=== PATIENT | female | born 1960 | race Caucasian/White ===

== ENCOUNTER 2025-01-01 10:40 | Inpatient (IN) | payer MEDICARE, OTHER ==
--- NOTE | 2025-01-01 11:36 | ED ---
General Adult HPI - General Chief complaint: Neuro Symptoms/Deficit Stated complaint: memory loss Time Seen by Provider: 01/01/25 10:55 Source: patient, family, RN notes reviewed, old records reviewed Mode of arrival: ambulatory Limitations: altered mental status - History of Present Illness Initial comments: This is a 64-year-old female who presents to the emergency department with family family gives all of the history. Family states about a week ago patient was at her baseline alert and oriented x 4 and she has had cognitive decline over the last week and has some very paranoid thinking lately and she also believes people that she is seeing on TV are her friends and in fact she now states that Rachna Brennan is one of her close friends and that she knows her very well. Patient denies any complaints or self however she is unable to recog nize her dog of 14 years and does not really understand which houses her house according to the and they took her to [facility] in [place] did a CT CT angiogram blood work it was all negative she also saw her primary medical care doctor and he did cognitive studies which she failed and this is all new onset in the last week. Patient has not had any fever or chills he has not taken any new medications. Family has been no fever there is been no difficulty breathing no cough and no recent trauma. - Related Data Home Medications Medication Instructions Recorded Confirmed Albuterol Inhaler [Ventolin Hfa 2 puff INHALATION RT-QID PRN 01/01/25 01/01/25 Inhaler] Biotin 5,000 mcg PO DAILY 01/01/25 01/01/25 Budesonide/Formoterol Fumarate 2 puff INHALATION RT-BID PRN 01/01/25 01/01/25 [Symbicort 160-4.5 Mcg Inhaler] Cetirizine HCl [Zyrtec] 10 mg PO HS 01/01/25 01/01/25 Escitalopram [Lexapro] 10 mg PO HS 01/01/25 01/01/25 Ezetimibe [Zetia] 10 mg PO HS 01/01/25 01/01/25 Famotidine 40 mg PO HS 01/01/25 01/01/25 Levothyroxine Sodium [Synthroid] 100 mcg PO AC-BRKFST 01/01/25 01/01/25 Losartan [Cozaar] 25 mg PO DAILY 01/01/25 01/01/25 Semaglutide [Ozempic] 1 mg SQ MO 01/01/25 01/01/25 traZODone HCL [Desyrel] 100 mg PO HS 01/01/25 01/01/25 Allergies Allergy/AdvReac Type Severity Reaction Status Date / Time Sulfa (Sulfonamide AdvReac Unknown Verified 01/01/25 11:41 Antibiotics) Review of Systems ROS Statement: Those systems with pertinent positive or pertinent negative responses have been documented in the HPI. ROS Other: All systems not noted in ROS Statement are negative. Past Medical History Past Medical History: Thyroid Disorder Past Surgical History: Orthopedic Surgery Smoking Status: Unknown if ever smoked Past Alcohol Use History: None Reported Past Drug Use History: None Reported General Exam - General Exam Comments Initial Comments: GENERAL: Patient is well-developed and well-nourished. Patient is nontoxic and well- hydrated and is in mild distress. ENT: Neck is soft and supple. No significant lymphadenopathy is noted. Oropharynx is clear. Moist mucous membranes. Neck has full range of motion without eliciting any pain. EYES: The sclera were anicteric and conjunctiva were pink and moist. Extraocular movements were intact and pupils were equal round and reactive to light. Eyelids were unremarkable. PULMONARY: Unlabored respirations. Good breath sounds bilaterally. No audible rales rhonchi or wheezing was noted. CARDIOVASCULAR: There is a regular rate and rhythm without any murmurs gallops or rubs. ABDOMEN: Soft and nontender with normal bowel sounds. SKIN: Skin is clear with no lesions or rashes and otherwise unremarkable. NEUROLOGIC: Patient is alert and oriented x 1. Cranial nerves II through XII are grossly intact. Motor and sensory are also intact. Normal speech, volume and content. Symmetrical smile. MUSCULOSKELETAL: Normal extremities with adequate strength and full range of motion. LYMPHATICS: No significant lymphadenopathy is noted PSYCHIATRIC: Patient states that she has great friends with Rachna Hernandez. Patient also is very fearful of me until family let her know that I was a friend and not to be afraid of me Limitations: altered mental status Course Vital Signs 01/01/25 01/01/25 10:42 12:20 Temperature 98.7 F Pulse Rate 71 68 Respiratory 18 20 Rate Blood Pressure 185/72 152/83 O2 Sat by Pulse 98 99 Oximetry Medical Decision Making - Medical Decision Making EKG is interpreted by myself but EKG shows a sinus rhythm at 66 bpm SC interval 143 QRS is 130 QT interval is 416 QTc is 429. Patient's EKG shows no ST segment elevation or depression. Was pt. sent in by a medical professional or institution (DOREEN Molina, CARDIAC EXERCISE PHYSIOLOGIST, urgent care, hospital, or assisted...) When possible be specific @ -No Did you speak to anyone other than the patient for history (EMS, parent, family, police, friend...)? What history was obtained from this source @ -No Did you review nursing and triage notes (agree or disagree)? Why? @ -I reviewed and agree with nursing and triage notes Were old charts reviewed (outside hosp., previous admission, EMS record, old EKG, old radiological studies, urgent care reports/EKG's, assisted records)? Report findings @ -No old charts were reviewed Differential Diagnosis? @ -Differential Altered Mental Status: Hypoglycemia, DKA, hypercapnia, ETOH, overdose, CO poisoning, trauma, myxedema coma, HTN encephalopathy, infection, encephalitis, psychosis, intercranial hemorrhage, hepatic encephalopathy, meningitis, CVA, this is not meant to be an all-inclusive list EKG interpreted by me (3pts min.). @ -As above X-rays interpreted by me (1pt min.). @ -None done CT interpreted by me (1pt min.). @ -None done U/S interpreted by me (1pt. min.). @ -None done What testing was considered but not performed or refused? (CT, X-rays, U/S, labs)? Why? @ -None What meds were considered but not given or refused? Why? @ -None Did you discuss the management of the patient with other professionals (professionals i.e. DOREEN Molina, CARDIAC EXERCISE PHYSIOLOGIST, lab, RT, psych nurse, social media content specialist, piano assembler, teacher, seismology technical officer, skilled nursing case manager)? Give summary @ -I spoke with sound physicians he agreed to admit the patient Was smoking cessation discussed for >3mins.? @ -No Was critical care preformed (if so, how long)? @ -No Were there social determinants of health that impacted care today? How? (Homelessness, low income, unemployed, alcoholism, drug addiction, tr ansportation, low edu. Level, literacy, decrease access to med. care, assisted, rehab)? @ -No Was there de-escalation of care discussed even if they declined (Discuss DNR or withdrawal of care, Hospice)? DNR status @ -No What co-morbidities impacted this encounter? (DM, HTN, Smoking, COPD, CAD, Cancer, CVA, ARF, Chemo, Hep., AIDS, mental health diagnosis, sleep apnea, morbid obesity)? @ -None Was patient admitted / discharged? Hospital course, mention meds given and route, prescriptions, significant lab abnormalities, going to OR and other pertinent info. @ -Patient continued to be significantly altered throughout her ED course. Patient did, positive for marijuana. According to the the patient occasionally will take a gummy to get sleep but he does not believe she is abusing them. Undiagnosed new problem with uncertain prognosis? @ -No Drug Therapy requiring intensive monitoring for toxicity (Heparin, Nitro, Insulin, Cardizem)? @ -No Were any procedures done? @ -No Diagnosis/symptom? @ -Altered mental status Acute, or Chronic, or Acute on Chronic? @ -Acute Uncomplicated (without systemic symptoms) or Complicated (systemic symptoms)? @ -Complicated Side effects of treatment? @ -No Exacerbation, Progression, or Severe Exacerbation? @ -No Poses a threat to life or bodily function? How? (Chest pain, USA, IA, pneumonia, PE, COPD, DKA, ARF, appy, cholecystitis, CVA, Diverticulitis, Homicidal, Suicidal, threat to staff... and all critical care pts) @ -Yes this could be secondary to encephalitis which could lead to significant morbidity or mortality - Lab Data Result diagrams: 01/01/25 12:13 01/01/25 12:13 Lab Results 01/01/25 01/01/25 01/01/25 Range/Units 12:13 12:13 12:13 WBC 10.49 H (4.50-10.00) 10*3/uL RBC 4.44 (4.10-5.20) 10*6/uL Hgb 13.8 (12.0-15.0) g/dL Hct 39.3 (37.2-46.3) % MCV 88.5 (80.0-97.0) fL MCH 31.1 (27.0-32.0) pg MCHC 35.1 (32.0-37.0) g/dL Plt Count 332 (140-440) 10*3/uL MPV 10.1 (9.5-12.2) fL Immature Gran % (Auto) 0.5 % Neutrophils % 73.1 % Lymphocytes % 18.0 % Monocytes % 7.6 % Eosinophils % 0.3 % Basophils % 0.5 % Immature Gran # 0.05 H (0.00-0.04) 10*3/uL Neutrophils # 7.67 (1.80-7.70) 10*3/uL Lymphocytes # 1.89 (0.90-5.00) 10*3/uL Monocytes # 0.80 (0.20-1.00) 10*3/uL Eosinophils # 0.03 L (0.04-0.35) 10*3/uL Basophils # 0.05 (0.00-0.10) 10*3/uL PT 10.8 (10.0-12.5) sec INR 1.0 (<1.2) APTT 23.6 (22.0-30.0) sec Sodium 139 (137-145) mmol/L Potassium 4.2 (3.5-5.1) mmol/L Chloride 107 (98-107) mmol/L Carbon Dioxide 21 L (22-30) mmol/L Anion Gap 11 mmol/L BUN 17 (7-17) mg/dL Creatinine 0.71 (0.52-1.04) mg/dL Est GFR (CKD-EPI)AfAm >90 (>60 ml/min/1.73 sqM) Est GFR (CKD-EPI)NonAf 89 (>60 ml/min/1.73 sqM) Glucose 113 H (74-99) mg/dL Calcium 10.0 (8.4-10.2) mg/dL Total Bilirubin 0.6 (0.2-1.3) mg/dL AST 25 (14-36) U/L ALT 35 H (4-34) U/L Alkaline Phosphatase 48 (38-126) U/L Ammonia (<30) umol/L Troponin I (0.000-0.034) ng/mL Total Protein 7.2 (6.3-8.2) g/dL Albumin 4.7 (3.5-5.0) g/dL TSH 0.126 L (0.465-4.680) mIU/L Free T4 1.32 (0.78-2.19) ng/dL Urine Color Urine Appearance (Clear) Urine pH (5.0-8.0) Ur Specific Lamy (1.001-1.035) Urine Protein (Negative) Urine Glucose (UA) (Negative) Urine Ketones (Negative) Urine Blood (Negative) Urine Nitrite (Negative) Urine Bilirubin (Negative) Urine Urobilinogen (<2.0) mg/dL Ur Leukocyte Esterase (Negative) Urine Opiates Screen (NotDetected) Ur Oxycodone Screen (NotDetected) Urine Methadone Screen (NotDetected) Ur Barbiturates Screen (NotDetected) U Tricyclic Antidepress (NotDetected) Ur Phencyclidine Scrn (NotDetected) Ur Amphetamines Screen (NotDetected) U Methamphetamines Scrn (NotDetected) U Benzodiazepines Scrn (NotDetected) Urine Cocaine Screen (NotDetected) U Marijuana (THC) Screen (NotDetected) 01/01/25 01/01/25 01/01/25 Range/Units 12:13 12:13 12:48 WBC (4.50-10.00) 10*3/uL RBC (4.10-5.20) 10*6/uL Hgb (12.0-15.0) g/dL Hct (37.2-46.3) % MCV (80.0-97.0) fL MCH (27.0-32.0) pg MCHC (32.0-37.0) g/dL Plt Count (140-440) 10*3/uL MPV (9.5-12.2) fL Immature Gran % (Auto) % Neutrophils % % Lymphocytes % % Monocytes % % Eosinophils % % Basophils % % Immature Gran # (0.00-0.04) 10*3/uL Neutrophils # (1.80-7.70) 10*3/uL Lymphocytes # (0.90-5.00) 10*3/uL Monocytes # (0.20-1.00) 10*3/uL Eosinophils # (0.04-0.35) 10*3/uL Basophils # (0.00-0.10) 10*3/uL PT (10.0-12.5) sec INR (<1.2) APTT (22.0-30.0) sec Sodium (137-145) mmol/L Potassium (3.5-5.1) mmol/L Chloride (98-107) mmol/L Carbon Dioxide (22-30) mmol/L Anion Gap mmol/L BUN (7-17) mg/dL Creatinine (0.52-1.04) mg/dL Est GFR (CKD-EPI)AfAm (>60 ml/min/1.73 sqM) Est GFR (CKD-EPI)NonAf (>60 ml/min/1.73 sqM) Glucose (74-99) mg/dL Calcium (8.4-10.2) mg/dL Total Bilirubin (0.2-1.3) mg/dL AST (14-36) U/L ALT (4-34) U/L Alkaline Phosphatase (38-126) U/L Ammonia 17 (<30) umol/L Troponin I <0.012 (0.000-0.034) ng/mL Total Protein (6.3-8.2) g/dL Albumin (3.5-5.0) g/dL TSH (0.465-4.680) mIU/L Free T4 (0.78-2.19) ng/dL Urine Color Colorless Urine Appearance Clear (Clear) Urine pH 6.5 (5.0-8.0) Ur Specific Lamy 1.006 (1.001-1.035) Urine Protein Negative (Negative) Urine Glucose (UA) Negative (Negative) Urine Ketones Negative (Negative) Urine Blood Negative (Negative) Urine Nitrite Negative (Negative) Urine Bilirubin Negative (Negative) Urine Urobilinogen <2.0 (<2.0) mg/dL Ur Leukocyte Esterase Negative (Negative) Urine Opiates Screen Not Detected (NotDetected) Ur Oxycodone Screen Not Detected (NotDetected) Urine Methadone Screen Not Detected (NotDetected) Ur Barbiturates Screen Not Detected (NotDetected) U Tricyclic Antidepress Not Detected (NotDetected) Ur Phencyclidine Scrn Not Detected (NotDetected) Ur Amphetamines Screen Not Detected (NotDetected) U Methamphetamines Scrn Not Detected (NotDetected) U Benzodiazepines Scrn Not Detected (NotDetected) Urine Cocaine Screen Not Detected (NotDetected) U Marijuana (THC) Screen Detected H (NotDetected) Disposition Clinical Impression: Altered mental status Disposition: ADMITTED IP TO THIS HOSP Referrals: Nonstaff,Physician [Primary Care Provider] - 1-2 days Time of Disposition: 14:41
[2025-01-01 12:20] LABS: Basophils # (A) 0.05 10*3/uL (0.00-0.10); Basophils % (A) 0.5 %; Eosinophils # (A) 0.03 10*3/uL (0.04-0.35); Eosinophils % (A) 0.3 %; HCT 39.3 % (37.2-46.3); HGB 13.8 g/dL (12.0-15.0); Lymphocytes # (A) 1.89 10*3/uL (0.90-5.00); MCH 31.1 pg (27.0-32.0); MCHC 35.1 g/dL (32.0-37.0); MCV 88.5 fL (80.0-97.0); Mean Platelet Volume 10.1 fL (9.5-12.2); Monocytes % (A) 7.6 %; Neutrophils # (A) 7.67 10*3/uL (1.80-7.70); Neutrophils % (A) 73.1 %; Platelet Count 332 10*3/uL (140-440); RBC 4.44 10*6/uL (4.10-5.20); RDW 11.9 % (11.5-14.5); WBC 10.49 10*3/uL (4.50-10.00)
[2025-01-01] MEDS: SODIUM CHLORIDE 0.9% 500 ML 500 ML IV ONE (12:20)
[2025-01-01 12:41] LABS: ALT 35 U/L (4-34); AST 25 U/L (14-36); African American GFR (CKD) >90 (>60 ml/min/1.73 sqM); Albumin 4.7 g/dL (3.5-5.0); Alkaline Phosphatase 48 U/L (38-126); Anion Gap 11 mmol/L; Blood Urea Nitrogen 17 mg/dL (7-17); Carbon Dioxide 21 mmol/L (22-30); Chloride 107 mmol/L (98-107); Glucose 113 mg/dL (74-99); Non-African American GFR(CKD) 89 (>60 ml/min/1.73 sqM); Potassium 4.2 mmol/L (3.5-5.1); Sodium 139 mmol/L (137-145); Total Bilirubin 0.6 mg/dL (0.2-1.3); Total Protein 7.2 g/dL (6.3-8.2)
[2025-01-01 12:44] LABS: Partial Thromboplastin Time 23.6 sec (22.0-30.0); Prothrombin Time 10.8 sec (10.0-12.5)
[2025-01-01 13:17] LABS: Appearance,Urine Clear (Clear); Bilirubin,Urine Negative (Negative); Blood,Urine Negative (Negative); Color,Urine Colorless; Glucose,Urine (UA) Negative (Negative); Ketones,Urine Negative (Negative); Leukocyte Esterase,Urine Negative (Negative); Nitrite,Urine Negative (Negative); PH, Urine 6.5 (5.0-8.0); Protein,Urine Negative (Negative); Specific Gravity,Urine 1.006 (1.001-1.035); Urobilinogen,Urine <2.0 mg/dL (<2.0)
[2025-01-01 13:32] LABS: Amphetamine Screen,Urine Not Detected (NotDetected); Barbiturate Screen,Urine Not Detected (NotDetected); Benzodiazepines Screen,Urine Not Detected (NotDetected); Cocaine Screen,Urine Not Detected (NotDetected); Methadone Screen, Urine Not Detected (NotDetected); Opiate Screen,Urine Not Detected (NotDetected); Oxycodone Screen, Urine Not Detected (NotDetected); Phencyclidine Screen,Urine Not Detected (NotDetected); Tricyclic Antidepressant,Urine Not Detected (NotDetected); Urn Cannabinoid Scrn Detected (NotDetected)
[2025-01-01 13:38] LABS: T4, Free (Free Thyroxine) 1.32 ng/dL (0.78-2.19)
[2025-01-01] MEDS ORDERED: ALBUTEROL NEBULIZED 2.5 MG/3 ML INHALATION PRN (14:00)
[2025-01-01] MEDS ORDERED: SYMBICORT 160-4.5 MCG INHALER INHALATION PRN (14:00)
[2025-01-01] MEDS ORDERED: DEXTROSE 50% SYRINGE 50 ML IVP PRN ×2 (14:04)
[2025-01-01 15:00] LABS: C Reactive Protein <0.5 mg/dL (<1.0)
[2025-01-01] MEDS: ACETAMINOPHEN TAB 500 MG TAB PO STA (15:21)
[2025-01-01] MEDS ORDERED: NALOXONE 0.4 MG/ML 1 ML VIAL IV PRN (15:25)
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
[2025-01-01 16:58] LABS: Glucose,Whole Blood 111 mg/dL (70-110)
[2025-01-01] MEDS: INSULIN LISPRO (HumaLOG) 100 UNIT/ML 10 mL VL SQ SCH (17:38)
[2025-01-01] MEDS: FAMOTIDINE 20 MG TAB PO SCH (19:49)
[2025-01-01] MEDS: EZETIMIBE 10 MG TAB PO SCH (19:49)
[2025-01-01] MEDS: IBUPROFEN 400 MG TAB PO PRN (19:50)
[2025-01-01 20:17] LABS: Glucose,Whole Blood 114 mg/dL (70-110)
[2025-01-01 20:53] LABS: HIV 2 AB Non-Reactive (Non-Reactive); HIV AB P24 Non-Reactive (Non-Reactive); HIV P24 AG Non-Reactive (Non-Reactive)
[2025-01-02 07:32] LABS: Glucose,Whole Blood 104 mg/dL (70-110)
[2025-01-02] MEDS: LEVOTHYROXINE 100 MCG TAB PO SCH (08:05)
[2025-01-02] MEDS: LOSARTAN 25 MG TAB PO SCH (08:05)
[2025-01-02 08:14] LABS: ALT 30 U/L (8-44); AST 20 U/L (13-35); Albumin 4.4 g/dL (3.8-4.9); Alkaline Phosphatase 46 U/L (41-126); BUN/Creat Ratio 21.29 Ratio (12.00-20.00); Blood Urea Nitrogen 14.9 mg/dL (9.0-27.0); Calcium 9.4 mg/dL (8.7-10.3); Carbon Dioxide 21.9 mmol/L (21.6-31.8); Chloride 106 mmol/L (96-109); Glucose 107 mg/dL (70-110); Potassium 4.5 mmol/L (3.5-5.5); Sodium 138 mmol/L (135-145); Total Bilirubin 0.2 mg/dL (0.3-1.2); Total Protein 6.4 g/dL (6.2-8.2)
[2025-01-02 08:31] LABS: Basophils # (A) 0.05 X 10*3/uL (0.00-0.10); Basophils % (A) 0.6 %; Eosinophils # (A) 0.07 X 10*3/uL (0.04-0.35); Eosinophils % (A) 0.8 %; HCT 38.6 % (37.2-46.3); HGB 12.7 g/dL (12.0-15.0); Lymphocytes # (A) 2.38 X 10*3/uL (0.90-5.00); Lymphocytes % (A) 26.6 %; MCH 30.1 pg (27.0-32.0); MCHC 32.9 g/dL (32.0-37.0); MCV 91.5 FL (80.0-97.0); Mean Platelet Volume 10.9 FL (9.5-12.2); Monocytes # (A) 0.61 X 10*3/uL (0.20-1.00); Monocytes % (A) 6.8 %; NRBC Per 100 WBC 0 X 10*3/uL (0.00-0.01); Neutrophils # (A) 5.79 X 10*3/uL (1.80-7.70); Neutrophils % (A) 64.6 %; Platelet Count 318 X 10*3/uL (140-440); RBC 4.22 X 10*6/uL (4.10-5.20); WBC 8.95 X 10*3/uL (4.50-10.00)
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
--- NOTE | 2025-01-02 11:38 | MR ---
EXAMINATION TYPE: MR brain wo/w con DATE OF EXAM: 01/02/2025 10:44 AM COMPARISON: 12/31/2024 CT brain CLINICAL INDICATION: Female, 64 years old with history of AMS, Memory loss, AMS. TECHNIQUE: Multiplanar, multiecho imaging on a 3.0 Enedelia magnet is performed through the brain. Stud y is performed within 24 hours of arrival to the hospital.Multiplanar, multiecho imaging on a 3.0 Kenisha la magnet is performed through the knee. IV Contrast: 8 mL Gadobutrol (None, if empty) FINDINGS: The craniovertebral junction is normal. The pituitary is normal. Diffusion-weighted imaging is performed. No abnormal hyperintensity is present to suggest an acute i ntracranial infarct or acute ischemic change. There are a couple of punctate deep white matter changes which are nonspecific and not out of proport ion to the patient's age. Differential diagnosis could include microvascular ischemic change, vasculi tis, migraine headaches, multiple sclerosis, Lyme disease. No abnormal enhancement is evident at thes e locations or elsewhere within the visualized brain. Ventricles and sulci are appropriate for the patient age. IMPRESSION: 1. No suspicious acute intracranial changes. 2. Couple of nonspecific white matter changes most likely on the basis of microvascular ischemic javier ge not out of proportion for the patient's age. [facility], Workstation: [facility], 01/02/2025 11:35 AM
[2025-01-02 12:19] LABS: Glucose,Whole Blood 115 mg/dL (70-110)
[2025-01-02] MEDS: ONDANSETRON 4 MG/2 ML VIAL IVP PRN (12:52)
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
[2025-01-02 17:13] LABS: Glucose,Whole Blood 123 mg/dL (70-110)
[2025-01-02 20:21] LABS: Glucose,Whole Blood 104 mg/dL (70-110)
--- NOTE | 2025-01-03 02:16 | EEG ---
ELECTROENCEPHALOGRAM REPORT CLINICAL HISTORY: This is a 64-year-old woman with altered mental status. The video EEG is obtained to evaluate for seizure epileptiform activity. RELEVANT MEDICATION: The patient is on Lexapro. EEG TYPE: This is a routine 21-channel EEG with video using the 10/20 electrode placement system. DESCRIPTION: Wakefulness is only obtained. During awake state, the posterior-dominant rhythm consists of [id number] voltage of 9.5 to 10.5 hertz activity that is well modulated and well sustained. There is no physiological stage 2 sleep architecture. There is no focal slowing. Interictal and ictal is none. ACTIVATION PROCEDURE: Photic stimulation did not evoke a posterior driving response. There is no abnormality during the photic stimulation. Hyperventilation is not performed. CLINICAL INTERPRETATION: This is a normal routine EEG during awake state. There is no focal slowing, epileptiform discharge, or seizure on the EEG. A normal routine EEG does not rule out underlying epilepsy. Clinical correlation is recommended. JOSE / ALEXIAN: [id number] /
[2025-01-03 07:03] LABS: Glucose,Whole Blood 100 mg/dL (70-110)
[2025-01-03 08:37] LABS: Basophils # (A) 0.05 X 10*3/uL (0.00-0.10); Basophils % (A) 0.5 %; Eosinophils # (A) 0.06 X 10*3/uL (0.04-0.35); Eosinophils % (A) 0.6 %; HGB 13.8 g/dL (12.0-15.0); Lymphocytes % (A) 27.5 %; MCH 30.1 pg (27.0-32.0); MCHC 32.9 g/dL (32.0-37.0); MCV 91.7 FL (80.0-97.0); Mean Platelet Volume 10.4 FL (9.5-12.2); Monocytes # (A) 0.73 X 10*3/uL (0.20-1.00); Monocytes % (A) 7.7 %; NRBC Per 100 WBC 0 X 10*3/uL (0.00-0.01); Neutrophils # (A) 5.97 X 10*3/uL (1.80-7.70); Neutrophils % (A) 63.2 %; Platelet Count 345 X 10*3/uL (140-440); RBC 4.58 X 10*6/uL (4.10-5.20); RDW 12.3 % (11.5-14.5); WBC 9.46 X 10*3/uL (4.50-10.00)
[2025-01-03 09:11] LABS: ALT 34 U/L (8-44); AST 22 U/L (13-35); Albumin 4.5 g/dL (3.8-4.9); Albumin/Globulin Ratio 2.14 Ratio (1.60-3.17); Alkaline Phosphatase 46 U/L (41-126); BUN/Creat Ratio 19.75 Ratio (12.00-20.00); Blood Urea Nitrogen 15.8 mg/dL (9.0-27.0); Calcium 9.8 mg/dL (8.7-10.3); Carbon Dioxide 23.1 mmol/L (21.6-31.8); Chloride 104 mmol/L (96-109); Globulin 2.1 g/dL (1.6-3.3); Glucose 96 mg/dL (70-110); LDH 210 U/L (120-246); Potassium 4.5 mmol/L (3.5-5.5); Sodium 139 mmol/L (135-145); Total Bilirubin 0.3 mg/dL (0.3-1.2); Total Protein 6.6 g/dL (6.2-8.2)
--- NOTE | 2025-01-03 09:15 | P.PCN ---
Date of Procedure: 01/03/25 Procedure(s) Performed: Preoperative diagnosis: Altered mental status Post operative diagnoses: Altered mental status Procedure= lumbar puncture Anesthesia= local infiltration with lidocaine 1% 3 mL. Condition: stable Complication: none. Description of the procedure procedure risk and benefits discussed with the patient and family, consent signed. Patient is in sitting position, back prepped with chlorhexidine 3 times been local infiltration of the skin and subcutaneous tissue with lidocaine 1% 3 mL for skin and subcu interstitial frustrations at L4 5 levels then 22-gauge Quincke-type needle advanced slowly at L4- 5 interlaminar space there was positive cerebrospinal fluid which was clear, no heme, no paresthesia ,total of 8 ML of clear cerebrospinal fluid collected in 4 different tubes 2 mL in each, then the needle removed and a Band-Aid applied and patient tolerated the procedure well without any complications.
[2025-01-03 11:55] LABS: Glucose,CSF 52 mg/dL (40-70); Total Protein,CSF 30 mg/dL (12-60)
[2025-01-03 12:18] LABS: Glucose,Whole Blood 104 mg/dL (70-110)
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
[2025-01-03] MEDS: ALPRAZolam 0.25 MG TAB PO STA (13:20)
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
[2025-01-03 15:36] LABS: Appearance,CSF Clear; CSF Tube Number 4
[2025-01-03 15:37] LABS: Nucleated Cells, CSF 0 u/L (0-5); Red Blood Cell,CSF 0 u/L (0-10)
[2025-01-03 17:03] LABS: Glucose,Whole Blood 100 mg/dL (70-110)
[2025-01-03 20:29] LABS: Glucose,Whole Blood 110 mg/dL (70-110)
[2025-01-03] MEDS: MELATONIN 3 MG TABLET PO SCH (20:56)
[2025-01-04 07:16] LABS: Glucose,Whole Blood 105 mg/dL (70-110)
[2025-01-04 07:32] VITALS: BP 149/77; PULSE 67; RESP 17; TEMP 98.3
[2025-01-04] MEDS: ESCITALOPRAM 10 MG TAB PO SCH (08:14)
[2025-01-04 08:31] LABS: ALT 28 U/L (8-44); AST 21 U/L (13-35); Albumin 4.4 g/dL (3.8-4.9); Albumin/Globulin Ratio 1.76 Ratio (1.60-3.17); Alkaline Phosphatase 48 U/L (41-126); BUN/Creat Ratio 27.29 Ratio (12.00-20.00); Blood Urea Nitrogen 19.1 mg/dL (9.0-27.0); Calcium 9.6 mg/dL (8.7-10.3); Carbon Dioxide 21.2 mmol/L (21.6-31.8); Chloride 104 mmol/L (96-109); Globulin 2.5 g/dL (1.6-3.3); Glucose 100 mg/dL (70-110); Potassium 4.3 mmol/L (3.5-5.5); Sodium 138 mmol/L (135-145); Total Bilirubin 0.3 mg/dL (0.3-1.2); Total Protein 6.9 g/dL (6.2-8.2)
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
[2025-01-04 11:06] LABS: Varicella zoster Virus by PCR Not detected (Not detected)
[2025-01-04 12:18] LABS: VDRL, Qualitative CSF Nonreactive (Nonreactive)
== END 2025-01-04 12:15 | disposition home or self-care (01) | DRG 72 ==
LOC: EC 10:40 → 5NMEDONC 14:43 → OBSVTOIN 15:25 → 5NMEDONC 15:54
PROVIDERS: ADMIT Student in an Organized Health Care Education/Training Program; ATTEND Student in an Organized Health Care Education/Training Program
PROC: 009U3ZX Drainage of Spinal Canal, Percutaneous Approach, Diagnostic (ICD-10-PCS; principal; 2025-01-03 08:35)
DX: G93.40 Encephalopathy, unspecified (principal); E03.9 Hypothyroidism, unspecified; E11.9 Type 2 diabetes mellitus without complications; I10 Essential (primary) hypertension; R41.3 Other amnesia; R27.0 Ataxia, unspecified; K21.9 Gastro-esophageal reflux disease without esophagitis; Z79.890 Hormone replacement therapy; Z79.899 Other long term (current) drug therapy; Z79.51 Long term (current) use of inhaled steroids; Z79.85 Long-term (current) use of injectable non-insulin antidiabetic drugs; F41.9 Anxiety disorder, unspecified; G47.33 Obstructive sleep apnea (adult) (pediatric); Z81.8 Family history of other mental and behavioral disorders; R11.10 Vomiting, unspecified
CPT/HCPCS: 36415; 62270; 70553; 80053; 80306; 81003; 82140; 82607; 82746; 82945; 83036; 83615; 83873; 84145; 84157; 84207; 84425; 84439; 84443; 84484; 85025; 85610; 85652; 85730; 86038; 86140; 86235; 86376; 86592; 86618; 86780; 87070; 87205; 87390; 87496; 87498; 87529; 87798; 88108; 89050; 93005; 94660; 95816; 96360; 96361; 99285